=== PATIENT | male | born 1990 | race Caucasian/White ===

== ENCOUNTER 2021-06-22 06:48 | Emergency (ER) | payer OTHER ==
[~2021-06-22] VITALS: Ht 180.3 cm; Wt 118.2 kg
[~2021-06-22 06:48] MED LIST: CEPHALEXIN500 M1 PO; NO HOME MEDICATIONS
[2021-06-22 07:21] VITALS: BP 126/91; TEMP 98.2
[2021-06-22] MEDS ORDERED: MOTRIN 800800 MG/TAB PO (08:05)
[2021-06-22 08:31] VITALS: PULSE 81
== END 2021-06-22 08:36 | disposition home or self-care (01) ==
LOC: COL.ER 06:48
DX: M25.561 Pain in right knee (principal); M25.562 Pain in left knee; F17.200 Nicotine dependence, unspecified, uncomplicated
CPT/HCPCS: J1885

== ENCOUNTER 2021-07-08 16:37 | Emergency (ER) | payer OTHER ==
[~2021-07-08] VITALS: Ht 182.9 cm; Wt 118.2 kg
[~2021-07-08 16:37] MED LIST changes: +MOTRIN 800800 MG/TAB PO
[2021-07-08 17:35] LABS: ALBUMIN 3.9 gm/dL (3.5-5.0); BILIRUBIN,TOTAL 0.5 mg/dL (0.2-1.2); CALCIUM 10.4 mg/dL (8.4-10.2); CREATININE, serum 0.92 mg/dL (0.72-1.25); POTASSIUM 3.7 mmol/L (3.5-4.5); TOTAL PROTEIN 6.8 gm/dL (6.2-8.1)
[2021-07-08 18:17] VITALS: BP 136/64; PULSE 74; TEMP 98.1
== END 2021-07-08 18:18 | disposition home or self-care (01) ==
LOC: COL.ER 16:37
PROVIDERS: Physician Assistant
DX: M25.561 Pain in right knee (principal); M25.562 Pain in left knee

== ENCOUNTER 2021-09-09 12:44 | Emergency (ER) | payer SELFPAY ==
[~2021-09-09] VITALS: Ht 188 cm; Wt 122.7 kg
[2021-09-09 12:51] VITALS: BP 155/97; TEMP 97.6
[2021-09-09 14:21] VITALS: PULSE 82
== END 2021-09-09 14:21 | disposition home or self-care (01) ==
LOC: COL.ER 12:44
DX: U07.1 COVID-19 (principal); F17.210 Nicotine dependence, cigarettes, uncomplicated
CPT/HCPCS: J1885

== ENCOUNTER 2022-05-08 14:39 | Emergency (ER) | payer SELFPAY ==
[~2022-05-08] VITALS: Ht 185.4 cm; Wt 121.8 kg
[2022-05-08 15:47] LABS: COLLECTION METHOD CLEAN CATCH
[2022-05-08 15:57] LABS: URINE APPEARANCE Clear (CLEAR/HAZY); URINE BLOOD Negative (NEGATIVE); URINE COLOR Yellow (YELLOW); URINE GLUCOSE Negative (NEGATIVE); URINE KETONE Negative (NEGATIVE); URINE NITRATE Negative (NEGATIVE); URINE PROTEIN(semi-quant) Negative (NEGATIVE)
[2022-05-08 15:59] LABS: MUCOUS Present (NOT PRESENT); SQUAMOUS EPITHELIAL None Seen /hpf (0-10); URINE BACTERIA None Seen /hpf (NONE SEEN); URINE RBC 0-2 /hpf (0-2)
[2022-05-08] MEDS ORDERED: DOXYCYCLINE 10100 MG PO (18:05)
[2022-05-08 18:19] VITALS: BP 127/81; PULSE 77; TEMP 98
== END 2022-05-08 18:19 | disposition home or self-care (01) ==
LOC: COL.ER 14:39
PROVIDERS: Emergency Medicine
DX: N41.0 Acute prostatitis (principal); F17.290 Nicotine dependence, other tobacco product, uncomplicated; Z88.0 Allergy status to penicillin; Z28.310 Unvaccinated for COVID-19